=== PATIENT | male | born 1945 | race Caucasian/White ===

== ENCOUNTER 2017-08-12 14:15 | Emergency (ER) | payer MEDICARE, BC ==
[2017-08-12 15:31] VITALS: BP 127/47
[2017-08-12] MEDS ORDERED: Sodium Chloride 0.9% 10 ML Syringe FLUSH PRN (17:00)
[2017-08-12 17:56] LABS: CHLORIDE,CL 91 mmol/L (101-111); SODIUM,NA 137 mmol/L (135-145)
--- NOTE | 2017-08-15 20:34 | EKG ---
08/12/2017 - JAGRUTI ROJAS I reviewed the EKG and agree with the machine's reading. [facility] /[id number]
--- NOTE | 2017-08-30 06:57 | EDM.PDOC ---
Scribed by Summer Iraheta 08/12/17 2019 for Elayne Kirk PA-C ED HPI GENERAL MEDICAL PROBLEM - General Chief Complaint: General Stated Complaint: [id number] DIZZY BLOOD PRESSURE LOW PULSE LOW Time Seen by Provider: 08/12/17 16:55 Source of Information: Reports: Patient, RN, RN Notes Reviewed History Limitations: Reports: No Limitations - History of Present Illness INITIAL COMMENTS - FREE TEXT/NARRATIVE: Patient presents with low blood pressure and heart rate at home. He is on home 02. He has dizziness worse today. Does have a history of dizziness. Blood sugar was 358 today. He has a sinus headache today. He has had no fever,chills, nausea , vomiting diarrhea or chest pain. He does have SOB that is not new. Location: Reports: Head, Chest Quality: Reports: Ache Severity: Moderate Improves with: Reports: None Worsens with: Reports: None Associated Symptoms: Reports: No Other Symptoms - Related Data Allergies Allergy/AdvReac Type Severity Reaction Status Date / Time morphine Allergy Cannot Verified 08/12/17 15:24 Remember Home Meds: Home Meds Allopurinol [Zyloprim] 300 mg PO DAILY 06/21/14 [History] Aspirin [Carlos Chewable Aspirin] 81 mg PO DAILY 06/21/14 [History] Budesonide/Formoterol [Symbicort 160-4.5 MCG] 2 meter INH BID 06/21/14 [History] Docusate Sodium 100 mg PO BID 06/21/14 [History] Nitroglycerin [Nitrostat] 0.4 mg SL ASDIRECTED PRN 06/21/14 [History] Potassium Chloride [Potassium Chloride] 20 meq PO QID 06/21/14 [History] glipiZIDE [Glucotrol] 2.5 mg PO DAILY 06/21/14 [History] Simethicone [Gas-X] 2 tab PO ASDIRECTED PRN 09/08/14 [History] Albuterol [Proventil HFA] 2 inh INH Q4HR PRN 03/26/15 [History] Bumetanide [Bumex] 2 mg PO BID 03/26/15 [History] Digoxin [Digoxin] 0.125 mg PO DAILY 03/26/15 [History] Lisinopril [Lisinopril] 10 mg PO DAILY PRN 03/26/15 [History] Simvastatin [Simvastatin] 20 mg PO QPM 03/26/15 [History] Amiodarone [Cordarone] 200 mg PO DAILY 10/12/15 [History] Metoprolol Tartrate 25 mg PO 08/12/17 [History] Past Medical History HEENT History: Reports: Hard of Hearing Cardiovascular History: Reports: Afib, Arrhythmia, CAD, High Cholesterol, Hypertension, Stents Respiratory History: Reports: COPD, SOB Gastrointestinal History: Reports: Colon Polyp, Diverticulosis, GERD, Hemorrhoids, PUD Genitourinary History: Reports: Renal Calculus Musculoskeletal History: Reports: Gout Other Musculoskeletal History: wrist surgery Endocrine/Metabolic History: Reports: Diabetes, Type II, Obesity/BMI 30+ - Past Surgical History Cardiovascular Surgical History: Reports: Coronary Artery Stent Neurological Surgical History: Reports: Lumbar Spine Musculoskeletal Surgical History: Reports: Other (See Below) Other Musculoskeletal Surgeries/Procedures:: broken right wrist now has a plate in it Social & Family History - Family History Family Medical History: Noncontributory - Tobacco Use Smoking Status *Q: Former Smoker Years of Tobacco use: 15 Used Tobacco, but Quit: Yes Month Tobacco Last Used: ? Second Hand Smoke Exposure: No - Caffeine Use Caffeine Use: Reports: None - Alcohol Use Days Per Week of Alcohol Use: 0 - Recreational Drug Use Recreational Drug Use: No Drug Use in Last 12 Months: No - Living Situation & Occupation Living situation: Reports: , with Spouse Occupation: Retired ED ROS GENERAL - Review of Systems Review Of Systems: ROS reveals no pertinent complaints other than HPI. ED EXAM, GENERAL - Physical Exam Exam: See Below Exam Limited By: No Limitations General Appearance: Other (in distress.) Eye Exam: Bilateral Eye: Normal Inspection Ears: Normal External Exam, Normal Canal, Hearing Grossly Normal, Normal TMs Nose: Normal Inspection, Normal Mucosa, No Blood Throat/Mouth: Normal Inspection Head: Atraumatic, Normocephalic Neck: Normal Inspection Respiratory/Chest: Crackles (RLL fine), Other (diminished lung sounds. LLL barely audible breath sounds.) Cardiovascular: Bradycardia, Other (S1 S2 regular. +1 left extremity pitting edema.) GI/Abdominal: Normal Bowel Sounds, Soft, Non-Tender, No Organomegaly, No Distention, No Abnormal Bruit, No Mass (Male) Exam: Deferred Rectal (Males) Exam: Deferred Back Exam: Normal Inspection, Full Range of Motion, NT Extremities: Normal Inspection, Normal Range of Motion, Non-Tender, Normal Capillary Refill, No Pedal Edema Neurological: Alert, Oriented, CN II-XII Intact, Normal Cognition, Normal Gait, Normal Reflexes, No Motor/Sensory Deficits Psychiatric: Normal Affect, Normal Mood Skin Exam: Warm, Dry, Intact, Normal Color, No Rash Lymphatic: No Adenopathy EKG INTERPRETATION EKG Date: 08/12/17 Time: 17:02 Rhythm: Other (junctional escape rhythm) Rate (Beats/Min): 46 [place]: Normal P-Wave: Present QRS: LBBB ST-T: Normal QT: Normal Comparison: No Change Course - Vital Signs Last Recorded V/S: Last Vital Signs Temp 98 F 08/12/17 15:29 Pulse 60 08/12/17 15:29 Resp 20 08/12/17 15:29 BP 127/47 L 08/12/17 15:29 Pulse Ox 91 L 08/12/17 15:29 - Orders/Labs/Meds Labs: Laboratory Tests 08/12/17 08/12/17 08/12/17 Range/Units 17:20 17:20 17:20 WBC 7.0 (5.0-10.0) 10^3/uL RBC 4.07 L (4.6-6.2) 10^6/uL Hgb 13.5 L D (14.0-18.0) g/dL Hct 42.2 (40.0-54.0) % MCV 103.7 H D (80-100) fL MCH 33.2 (27.0-34.0) pg MCHC 32.0 L (33.0-35.0) g/dL Plt Count 123 L (150-450) 10^3/uL Neut % (Auto) 54.4 (42.2-75.2) % Lymph % (Auto) 31.4 (20.5-50.1) % [place] % (Auto) 11.9 H (2-8) % Eos % (Auto) 1.9 (1.0-3.0) % Baso % (Auto) 0.4 (0.0-1.0) % PT (9.0-12.0) SEC INR (0.9-1.2) D-Dimer, Quantitative < 100 (0-400) ng/mL Sodium 137 (135-145) mmol/L Potassium 3.7 (3.6-5.0) mmol/L Chloride 91 L (101-111) mmol/L Carbon Dioxide 38.0 H (21.0-31.0) mmol/L Anion Gap 11.7 BUN 19 H (7-18) mg/dL Creatinine 1.1 (0.6-1.3) mg/dL Est Cr Clr Drug Dosing 58.42 mL/min Estimated GFR (MDRD) > 60 BUN/Creatinine Ratio 17.27 Glucose 236 H (74-105) mg/dL Calcium 8.9 (8.4-10.2) mg/dl Total Bilirubin 0.7 (0.2-1.0) mg/dL AST 28 (10-42) IU/L ALT 37 (10-60) IU/L Alkaline Phosphatase 72 (42-121) IU/L Troponin I 0.03 H* (0.00-0.02) ng/ml B-Natriuretic Peptide (0-100) pg/ml Total Protein 6.3 L (6.7-8.2) g/dl Albumin 3.8 (3.2-5.5) g/dl Globulin 2.5 Albumin/Globulin Ratio 1.52 Urine Color (YELLOW) Urine Appearance (CLEAR) Urine pH (5.0-9.0) Ur Specific [place] (1.005-1.030) Urine Protein (NEGATIVE) Urine Glucose (UA) (NEGATIVE) Urine Ketones (NEGATIVE) Urine Occult Blood (NEGATIVE) Urine Nitrite (NEGATIVE) Urine Bilirubin (NEGATIVE) Urine Urobilinogen (0.2-1.0) mg/dL Ur Leukocyte Esterase (NEGATIVE) Urine RBC /HPF Urine WBC (0-5/HPF) /HPF Urine Bacteria (0-FEW/HPF) /HPF Urine Mucus /LPF Digoxin (0-2.5) ng/ml 08/12/17 08/12/17 08/12/17 Range/Units 17:20 17:20 17:20 WBC (5.0-10.0) 10^3/uL RBC (4.6-6.2) 10^6/uL Hgb (14.0-18.0) g/dL Hct (40.0-54.0) % MCV (80-100) fL MCH (27.0-34.0) pg MCHC (33.0-35.0) g/dL Plt Count (150-450) 10^3/uL Neut % (Auto) (42.2-75.2) % Lymph % (Auto) (20.5-50.1) % [place] % (Auto) (2-8) % Eos % (Auto) (1.0-3.0) % Baso % (Auto) (0.0-1.0) % PT 10.4 D (9.0-12.0) SEC INR 1.0 (0.9-1.2) D-Dimer, Quantitative (0-400) ng/mL Sodium (135-145) mmol/L Potassium (3.6-5.0) mmol/L Chloride (101-111) mmol/L Carbon Dioxide (21.0-31.0) mmol/L Anion Gap BUN (7-18) mg/dL Creatinine (0.6-1.3) mg/dL Est Cr Clr Drug Dosing mL/min Estimated GFR (MDRD) BUN/Creatinine Ratio Glucose (74-105) mg/dL Calcium (8.4-10.2) mg/dl Total Bilirubin (0.2-1.0) mg/dL AST (10-42) IU/L ALT (10-60) IU/L Alkaline Phosphatase (42-121) IU/L Troponin I (0.00-0.02) ng/ml B-Natriuretic Peptide 144 H (0-100) pg/ml Total Protein (6.7-8.2) g/dl Albumin (3.2-5.5) g/dl Globulin Albumin/Globulin Ratio Urine Color (YELLOW) Urine Appearance (CLEAR) Urine pH (5.0-9.0) Ur Specific [place] (1.005-1.030) Urine Protein (NEGATIVE) Urine Glucose (UA) (NEGATIVE) Urine Ketones (NEGATIVE) Urine Occult Blood (NEGATIVE) Urine Nitrite (NEGATIVE) Urine Bilirubin (NEGATIVE) Urine Urobilinogen (0.2-1.0) mg/dL Ur Leukocyte Esterase (NEGATIVE) Urine RBC /HPF Urine WBC (0-5/HPF) /HPF Urine Bacteria (0-FEW/HPF) /HPF Urine Mucus /LPF Digoxin 0.8 (0-2.5) ng/ml 08/12/ Range/Units 17:57 WBC (5.0-10.0) 10^3/uL RBC (4.6-6.2) 10^6/uL Hgb (14.0-18.0) g/dL Hct (40.0-54.0) % MCV (80-100) fL MCH (27.0-34.0) pg MCHC (33.0-35.0) g/dL Plt Count (150-450) 10^3/uL Neut % (Auto) (42.2-75.2) % Lymph % (Auto) (20.5-50.1) % [place] % (Auto) (2-8) % Eos % (Auto) (1.0-3.0) % Baso % (Auto) (0.0-1.0) % PT (9.0-12.0) SEC INR (0.9-1.2) D-Dimer, Quantitative (0-400) ng/mL Sodium (135-145) mmol/L Potassium (3.6-5.0) mmol/L Chloride (101-111) mmol/L Carbon Dioxide (21.0-31.0) mmol/L Anion Gap BUN (7-18) mg/dL Creatinine (0.6-1.3) mg/dL Est Cr Clr Drug Dosing mL/min Estimated GFR (MDRD) BUN/Creatinine Ratio Glucose (74-105) mg/dL Calcium (8.4-10.2) mg/dl Total Bilirubin (0.2-1.0) mg/dL AST (10-42) IU/L ALT (10-60) IU/L Alkaline Phosphatase (42-121) IU/L Troponin I (0.00-0.02) ng/ml B-Natriuretic Peptide (0-100) pg/ml Total Protein (6.7-8.2) g/dl Albumin (3.2-5.5) g/dl Globulin Albumin/Globulin Ratio Urine Color Yellow (YELLOW) Urine Appearance Clear (CLEAR) Urine pH 6.0 (5.0-9.0) Ur Specific [place] 1.015 (1.005-1.030) Urine Protein Negative (NEGATIVE) Urine Glucose (UA) 250 H (NEGATIVE) Urine Ketones Negative (NEGATIVE) Urine Occult Blood Negative (NEGATIVE) Urine Nitrite Negative (NEGATIVE) Urine Bilirubin Negative (NEGATIVE) Urine Urobilinogen 0.2 (0.2-1.0) mg/dL Ur Leukocyte Esterase Negative (NEGATIVE) Urine RBC Not seen /HPF Urine WBC Not seen (0-5/HPF) /HPF Urine Bacteria Not seen (0-FEW/HPF) /HPF Urine Mucus Rare /LPF Digoxin (0-2.5) ng/ml Meds: Medications Discontinued Medications Generic Name Dose Route Start Last Admin Trade Name Freq PRN Reason Stop Dose Admin Sodium Chloride 10 ml 08/12/17 17:00 08/12/17 17:49 Saline Flush FLUSH 10 ml ASDIRECTED PRN Administration Keep Vein Open - Radiology Interpretation Free Text/Narrative:: Chest x-ray: Mild right basilar atelectasis. See rad report. Departure - Departure Time of Disposition: 20:17 Disposition: DC/Tfer to Acute Hospital 02 Condition: Undetermined Clinical Impression: Bradycardia by electrocardiogram, COLD, Chronic obstructive lung disease, Junctional bradycardia, Hyperglycemia - Discharge Information Referrals: PCP,None [Primary Care Provider] - Forms: ED Department Discharge I have read and agree with the documentation that has been completed regarding this visit. By signing this record, I attest that the documentation was completed in my physical presence and is an accurate record of the encounter.
== END 2017-08-12 21:04 ==
LOC: DL.ED 14:15
DX: E11.65 Type 2 diabetes mellitus with hyperglycemia (principal); J44.9 Chronic obstructive pulmonary disease, unspecified; R00.1 Bradycardia, unspecified; I10 Essential (primary) hypertension; E78.00 Pure hypercholesterolemia, unspecified; I48.91 Unspecified atrial fibrillation; I25.10 Atherosclerotic heart disease of native coronary artery without angina pectoris; Z95.5 Presence of coronary angioplasty implant and graft; Z87.891 Personal history of nicotine dependence; Z79.84 Long term (current) use of oral hypoglycemic drugs; Z79.82 Long term (current) use of aspirin; Z88.5 Allergy status to narcotic agent
CPT/HCPCS: 36415; 70450; 71010; 80053; 80162; 81001; 83880; 84484; 85025; 85379; 85610; 93005; 93010; 99285; J7050; 99283

== ENCOUNTER 2019-10-20 10:04 | Emergency (ER) | payer MEDICARE, BC ==
[2019-10-20 10:38] VITALS: BP 122/44; PULSE 76
--- NOTE | 2019-10-20 12:19 | EDM.PDOC ---
Scribed by Summer Iraheta 10/20/19 1219 for Edita Stein NP ED HPI GENERAL MEDICAL PROBLEM - General Chief Complaint: Upper Extremity Injury/Pain Stated Complaint: FALL/ARM/HIP PAIN Time Seen by Provider: 10/20/19 10:22 Source of Information: Reports: Patient, Family, RN, RN Notes Reviewed History Limitations: Reports: No Limitations - History of Present Illness INITIAL COMMENTS - FREE TEXT/NARRATIVE: Patient presents to ER with complaint of fall this morning about 08:00. 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 States he bumped head. He was not knocked out. He has a slight headache. He complains of pain to right arm (plate in right wrist). States fell on right hip but denies pain at this time time. Denies dizziness or episode leading up to event. HE is on 2 liters nasal cannula at all times. Onset: Today Duration: Constant Location: Reports: Generalized Quality: Reports: Ache Severity: Moderate Improves with: Reports: None Worsens with: Reports: None Associated Symptoms: Reports: No Other Symptoms - Related Data Allergies Allergy/AdvReac Type Severity Reaction Status Date / Time morphine Allergy Cannot Verified 10/20/19 10:38 Remember Home Meds: Home Meds Aspirin [Carlos Chewable Aspirin] 81 mg PO DAILY 06/21/14 [History] Budesonide/Formoterol [Symbicort 160-4.5 MCG] 2 meter INH BID 06/21/14 [History] Docusate Sodium 100 mg PO BID 06/21/14 [History] Nitroglycerin [Nitrostat] 0.4 mg SL ASDIRECTED PRN 06/21/14 [History] Potassium Chloride 20 meq PO QID 06/21/14 [History] allopurinoL [Zyloprim] 300 mg PO DAILY 06/21/14 [History] glipiZIDE [Glucotrol] 2.5 mg PO DAILY 06/21/14 [History] Simethicone [Gas-X] 2 tab PO ASDIRECTED PRN 09/08/14 [History] Albuterol [Proventil HFA] 2 inh INH Q4HR PRN 03/26/15 [History] Bumetanide [Bumex] 2 mg PO BID 03/26/15 [History] Digoxin 0.125 mg PO DAILY 03/26/15 [History] Lisinopril 10 mg PO DAILY PRN 03/26/15 [History] Simvastatin 20 mg PO QPM 03/26/15 [History] Amiodarone [Cordarone] 200 mg PO DAILY 10/12/15 [History] Metoprolol Tartrate 25 mg PO 08/12/17 [History] Past Medical History HEENT History: Reports: Hard of Hearing Cardiovascular History: Reports: Afib, Arrhythmia, CAD, Heart Failure, High Cholesterol, Hypertension, Pacemaker, Stents Respiratory History: Reports: COPD, SOB Gastrointestinal History: Reports: Colon Polyp, Diverticulosis, GERD, Hemorrhoids, PUD Genitourinary History: Reports: Renal Calculus Musculoskeletal History: Reports: Gout Other Musculoskeletal History: wrist surgery Endocrine/Metabolic History: Reports: Diabetes, Type II, Obesity/BMI 30+ - Past Surgical History Cardiovascular Surgical History: Reports: Coronary Artery Stent Neurological Surgical History: Reports: Lumbar Spine Musculoskeletal Surgical History: Reports: Other (See Below) Other Musculoskeletal Surgeries/Procedures:: broken right wrist now has a plate in it Social & Family History - Family History Family Medical History: Noncontributory - Caffeine Use Caffeine Use: Reports: None - Living Situation & Occupation Living situation: Reports: , with Spouse Occupation: Retired Review of Systems - Review of Systems Review Of Systems: Comprehensive ROS is negative, except as noted in HPI. ED EXAM, GENERAL - Physical Exam Exam: See Below Exam Limited By: No Limitations General Appearance: Alert, WD/WN, No Apparent Distress Eye Exam: Bilateral Eye: EOMI, Normal Inspection, PERRL Ears: Normal External Exam, Normal Canal, Hearing Grossly Normal, Normal TMs Nose: Normal Inspection, Normal Mucosa, No Blood Throat/Mouth: Normal Inspection, Normal Lips, Normal Teeth, Normal Gums, Normal Oropharynx, Normal Voice, No Airway Compromise Head: Atraumatic, Normocephalic Neck: Normal Inspection, Supple, Non-Tender, Full Range of Motion Respiratory/Chest: Crackles (throughout. Diminished) Cardiovascular: Normal Peripheral Pulses, Regular Rate, Rhythm, No Edema, No Gallop, No JVD, No Murmur, No Rub GI/Abdominal: Normal Bowel Sounds, Soft, Non-Tender, No Organomegaly, No Distention, No Abnormal Bruit, No Mass (Male) Exam: Deferred Rectal (Males) Exam: Deferred Back Exam: Normal Inspection, Full Range of Motion, NT Extremities: Normal Inspection, Normal Range of Motion, Non-Tender, Normal Capillary Refill, No Pedal Edema Neurological: Alert, Oriented, CN II-XII Intact, Normal Cognition, Normal Gait, Normal Reflexes, No Motor/Sensory Deficits Psychiatric: Normal Affect, Normal Mood Skin Exam: Dry Lymphatic: No Adenopathy Course - Vital Signs Last Recorded V/S: Last Vital Signs Temp 97.6 F 10/20/19 10:20 Pulse 76 10/20/19 10:20 Resp 16 10/20/19 10:20 BP 122/44 L 10/20/19 10:20 Pulse Ox 95 10/20/19 10:20 - Orders/Labs/Meds Orders: Active Orders 24 hr Category Date Time Status Forearm 2V Rt [CR] Urgent Exams 10/20/19 10:36 Taken Head wo Cont [CT] Urgent Exams 10/20/19 10:36 Taken - Radiology Interpretation Free Text/Narrative:: CT Head wo contrast: FINDINGS: Brain: No hemorrhage, edema, or mass effect. Nonspecific decreased attenuation in both hemispheres compatible with chronic ischemic change. Ventricles: Normal. No ventriculomegaly. Bones/joints: Unremarkable. No acute fracture. Sinuses: No acute sinusitis. Mastoid air cells: Unremarkable. Soft tissues: Unremarkable. IMPRESSION: No acute findings. Thank you for allowing us to participate in the care of your patient. Dictated and Authenticated by: Vijay Skelton MD 10/20/2019 12:13 PM Central Time ([place] & [place]) Right forearm xray: FINDINGS: Bones/joints: No acute fracture. Radial internal fixation device. Radiocarpal degenerative/arthritic change. Soft tissues: No radiodense or metallic foreign body. Vascular calcifications. IMPRESSION: No acute findings. Thank you for allowing us to participate in the care of your patient. Dictated and Authenticated by: Vijay Skelton MD 10/20/2019 12:13 PM Central Time ([place] & [place]) See rad report Departure - Departure Time of Disposition: 12:15 Disposition: Home, Self-Care 01 Condition: Fair Clinical Impression: Fall at home Qualifiers: Encounter type: initial encounter Qualified Code(s): W19.XXXA - Unspecified fall, initial encounter; Y92.009 - Unspecified place in unspecified non- institutional (private) residence as the place of occurrence of the external cause COPD (chronic obstructive pulmonary disease) Qualifiers: COPD type: chronic bronchitis Chronic bronchitis type: unspecified Qualified Code(s): J42 - Unspecified chronic bronchitis CHF (congestive heart failure) Qualifiers: Heart failure type: unspecified Heart failure chronicity: unspecified Qualified Code(s): I50.9 - Heart failure, unspecified Diabetes Qualifiers: Diabetes mellitus type: type 2 Diabetes mellitus termination clerk insulin use: with termination clerk use Diabetes mellitus complication status: without complication Qualified Code(s): E11.9 - Type 2 diabetes mellitus without complications; Z79.4 - manager intermediate (current) use of insulin - Discharge Information *PRESCRIPTION DRUG MONITORING PROGRAM REVIEWED*: No *COPY OF PRESCRIPTION DRUG MONITORING REPORT IN PATIENT ADELE: No Instructions: Understanding Your Risk for Falls Forms: ED Department Discharge Additional Instructions: Rest Follow up with your primary care facility if no improvement May use Tylenol as directed for pain Sepsis Event Note - Focused Exam Vital Signs: Vital Signs Temp Pulse Resp BP Pulse Ox 10/20/19 10:20 97.6 F 76 16 122/44 L 95 Date Exam was Performed: 10/20/19 Time Exam was Performed: 12:14 - My Orders Last 24 Hours: My Active Orders 10/20/19 10:36 Forearm 2V Rt [CR] Urgent Head wo Cont [CT] Urgent - Assessment/Plan Last 24 Hours: My Active Orders 10/20/19 10:36 Forearm 2V Rt [CR] Urgent Head wo Cont [CT] Urgent I have read and agree with the documentation that has been completed regarding this visit. By signing this record, I attest that the documentation was completed in my physical presence and is an accurate record of the encounter.
== END 2019-10-20 12:38 | disposition home or self-care (01) ==
LOC: DL.ED 10:04
DX: R51 Headache (principal); M79.601 Pain in right arm; J42 Unspecified chronic bronchitis; E11.9 Type 2 diabetes mellitus without complications; I11.0 Hypertensive heart disease with heart failure; I50.9 Heart failure, unspecified; I48.91 Unspecified atrial fibrillation; I25.10 Atherosclerotic heart disease of native coronary artery without angina pectoris; E78.00 Pure hypercholesterolemia, unspecified; M10.9 Gout, unspecified; E66.9 Obesity, unspecified; Z68.41 Body mass index [BMI] 40.0-44.9, adult; Z88.5 Allergy status to narcotic agent; Z95.0 Presence of cardiac pacemaker; Z95.5 Presence of coronary angioplasty implant and graft; Z79.82 Long term (current) use of aspirin; Z79.51 Long term (current) use of inhaled steroids; Z79.899 Other long term (current) drug therapy; Z79.84 Long term (current) use of oral hypoglycemic drugs; W19.XXXA Unspecified fall, initial encounter; Y93.89 Activity, other specified; Y92.009 Unspecified place in unspecified non-institutional (private) residence as the place of occurrence of the external cause
CPT/HCPCS: 70450; 73090-RT; 99284-25

== ENCOUNTER 2021-06-01 18:11 | Emergency (ER) | payer MEDICARE, BC ==
[2021-06-01] MEDS ORDERED: Albuterol 0.083% 2.5 MG/3 ML Neb Soln NEB ONE ×3 (18:15→21:09)
[2021-06-01] MEDS ORDERED: Sodium Chloride 0.9% 10 ML Syringe FLUSH PRN (18:17)
[2021-06-01] MEDS ORDERED: methylPREDNISolone Sodium Succinate 125 MG/2 ML SDV IVPUSH ONE (18:18)
[2021-06-01] MEDS ORDERED: Magnesium Sulfate/Water 2 GM in Premix Bag 2 BAG IV ONE (18:19)
--- NOTE | 2021-06-01 18:52 | EDM.PDOC ---
<Ayo Barros - Last Filed: 06/06/21 07:54> ED HPI GENERAL MEDICAL PROBLEM - General Chief Complaint: Respiratory Problem Stated Complaint: AMBULANCE Time Seen by Provider: 06/01/21 18:15 - Related Data Allergies Allergy/AdvReac Type Severity Reaction Status Date / Time morphine Allergy Cannot Verified 06/01/21 18:21 Remember Home Meds: Home Meds Aspirin [Carlos Chewable Aspirin] 81 mg PO DAILY 06/21/14 [History] Budesonide/Formoterol [Symbicort 160-4.5 MCG] 2 meter INH BID 06/21/14 [History] Docusate Sodium 100 mg PO BID 06/21/14 [History] Nitroglycerin [Nitrostat] 0.4 mg SL ASDIRECTED PRN 06/21/14 [History] Potassium Chloride 20 meq PO QID 06/21/14 [History] allopurinoL [Zyloprim] 300 mg PO DAILY 06/21/14 [History] glipiZIDE [Glucotrol] 2.5 mg PO DAILY 06/21/14 [History] Simethicone [Gas-X] 2 tab PO ASDIRECTED PRN 09/08/14 [History] Albuterol [Proventil HFA] 2 inh INH Q4HR PRN 03/26/15 [History] Bumetanide [Bumex] 2 mg PO BID 03/26/15 [History] Digoxin 0.125 mg PO DAILY 03/26/15 [History] Lisinopril 10 mg PO DAILY PRN 03/26/15 [History] Simvastatin 20 mg PO QPM 03/26/15 [History] Amiodarone [Cordarone] 200 mg PO DAILY 10/12/15 [History] Metoprolol Tartrate 25 mg PO 08/12/17 [History] Departure - Departure Time of Disposition: 20:45 Disposition: DC/Tfer to Acute Hospital 02 Condition: Serious Clinical Impression: Acute exacerbation of chronic obstructive pulmonary disease (COPD), Hyperka lemia Acute on chronic respiratory failure Qualifiers: Respiratory failure complication: unspecified whether with hypoxia or hypercapnia Qualified Code(s): J96.20 - Acute and chronic respiratory failure, unspecified whether with hypoxia or hypercapnia - Discharge Information *PRESCRIPTION DRUG MONITORING PROGRAM REVIEWED*: Not Applicable *COPY OF PRESCRIPTION DRUG MONITORING REPORT IN PATIENT ADELE: Not Applicable Referrals: Maggie Condon NP [Primary Care Provider] - Forms: ED Department Discharge <Genaro Luna - Last Filed: 06/10/21 07:25> ED HPI GENERAL MEDICAL PROBLEM - General Source of Information: Reports: Patient History Limitations: Reports: No Limitations - History of Present Illness INITIAL COMMENTS - FREE TEXT/NARRATIVE: 75 y/o M c/o SOB since yesterday. Pt states he has used his inhaler with no relief. Hx of COPD and CHF. SOB becae so severe that pt had to call the ambulance this afternoon. Denies fever, cough, chills, drugs, etoh, CP, abd pn, diff voiding, extremity pn. No recent trauma or exposure to COVID. Duration: Day(s): Location: Reports: Chest Improves with: Reports: None Worsens with: Reports: Movement Left Chest Pain Score (Numeric/FACES): 5 Past Medical History HEENT History: Reports: Hard of Hearing Cardiovascular History: Reports: Afib, Arrhythmia, CAD, Heart Failure, High Cholesterol, Hypertension, Pacemaker, Stents Respiratory History: Reports: COPD, SOB Gastrointestinal History: Reports: Colon Polyp, Diverticulosis, GERD, Hemorrhoids, PUD Genitourinary History: Reports: Renal Calculus Musculoskeletal History: Reports: Gout Other Musculoskeletal History: wrist surgery Psychiatric History: Reports: None Endocrine/Metabolic History: Reports: Diabetes, Type II, Obesity/BMI 30+ Hematologic History: Reports: None Immunologic History: Reports: None Oncologic (Cancer) History: Reports: None Dermatologic History: Reports: None - Infectious Disease History Infectious Disease History: Reports: None - Past Surgical History Head Surgeries/Procedures: Reports: None HEENT Surgical History: Reports: Tonsillectomy Cardiovascular Surgical History: Reports: Coronary Artery Stent GI Surgical History: Reports: Colonoscopy, EGD Neurological Surgical History: Reports: Lumbar Spine Musculoskeletal Surgical History: Reports: Other (See Below) Other Musculoskeletal Surgeries/Procedures:: broken right wrist now has a plate in it Social & Family History - Family History Family Medical History: No Pertinent Family History - Tobacco Use Tobacco Use Status *Q: Unknown Ever Used Tobacco - Caffeine Use Caffeine Use: Reports: None - Recreational Drug Use Recreational Drug Use: No - Living Situation & Occupation Living situation: Reports: , with Spouse Occupation: Retired ED ROS GENERAL - Review of Systems Review Of Systems: Comprehensive ROS is negative, except as noted in HPI. ED EXAM, GENERAL - Physical Exam Exam: See Below Exam Limited By: No Limitations General Appearance: Alert, Moderate Distress Throat/Mouth: Normal Inspection, Normal Lips, Normal Teeth, Normal Gums, Normal Oropharynx, Normal Voice, No Airway Compromise Head: Atraumatic, Normocephalic Neck: Supple, Non-Tender Respiratory/Chest: Respiratory Distress, Wheezing Cardiovascular: Normal Peripheral Pulses GI/Abdominal: Soft, Non-Tender (Male) Exam: Deferred Rectal (Males) Exam: Deferred Neurological: Alert, Oriented Psychiatric: Normal Affect, Normal Mood Skin Exam: Warm, Dry, Intact, Normal Color, No Rash #1 Interpretation EKG Date: 06/01/21 Time: 18:29 Rhythm: Other (paced rhythm) [place]: LAD-Left [place] Deviation P-Wave: Present QRS: Normal ST-T: Normal QT: Normal Course - Vital Signs Last Recorded V/S: Last Vital Signs Temp 100.6 F 06/01/21 18:22 Pulse 70 06/01/21 20:30 Resp 18 06/01/21 20:30 BP 120/99 H 06/01/21 20:30 Pulse Ox 93 L 06/01/21 20:30 - Orders/Labs/Meds Labs: Laboratory Tests 06/01/21 06/01/21 06/01/21 Range/Units 18:36 18:36 18:36 WBC 11.0 H (5.0-10.0) 10^3/uL RBC 3.16 L (4.6-6.2) 10^6/uL Hgb 10.7 L D (14.0-18.0) g/dL Hct 35.0 L (40.0-54.0) % MCV 110.8 H D (80-100) fL MCH 33.9 (27.0-34.0) pg MCHC 30.6 L (33.0-35.0) g/dL Plt Count 116 L (150-450) 10^3/uL Neut % (Auto) 81.3 H (42.2-75.2) % Lymph % (Auto) 8.2 L (20.5-50.1) % [place] % (Auto) 10.0 H (2-8) % Eos % (Auto) 0.3 L (1.0-3.0) % Baso % (Auto) 0.2 (0.0-1.0) % PT 10.9 (9.0-12.0) SEC INR 1.1 (0.9-1.2) APTT 26.8 (22.0-34.0) SEC Sodium 141 (136-145) mmol/L Potassium 6.6 H* (3.5-5.1) mmol/L Chloride 103 (98-107) mmol/L Carbon Dioxide 36 H (21-32) mmol/L Anion Gap 8.6 (7-13) mEq/L BUN 21 H (7-18) mg/dL Creatinine 1.30 (0.70-1.30) mg/dL Est Cr Clr Drug Dosing 51.47 mL/min Estimated GFR (MDRD) 54 BUN/Creatinine Ratio 16.2 (No establ ref range) Glucose 218 H (70-99) mg/dL Lactic Acid (0.4-2.0) mmol/L Calcium 8.9 (8.5-10.1) mg/dL Magnesium 2.3 (1.8-2.4) mg/dL Total Bilirubin 0.8 (0.2-1.0) mg/dL AST 21 (15-37) U/L ALT 43 (16-63) U/L Alkaline Phosphatase 103 (46-116) U/L Troponin I High Sens 22 (<=76) pg/mL B-Natriuretic Peptide 168 H (0-100) pg/ml Total Protein 6.2 L (6.4-8.2) g/dL Albumin 3.2 L (3.4-5.0) g/dL Globulin 3.0 Albumin/Globulin Ratio 1.07 Urine Color (YELLOW) Urine Appearance (CLEAR) Urine pH (5.0-9.0) Ur Specific [place] (1.005-1.030) Urine Protein (NEGATIVE) Urine Glucose (UA) (NEGATIVE) Urine Ketones (NEGATIVE) Urine Occult Blood (NEGATIVE) Urine Nitrite (NEGATIVE) Urine Bilirubin (NEGATIVE) Urine Urobilinogen (0.2-1.0) mg/dL Ur Leukocyte Esterase (NEGATIVE) U Hyaline Cast (Auto) Urine RBC (0-5) /HPF Urine WBC (0-5/HPF) /HPF Ur Epithelial Cells (NOT SEEN) /HPF Amorphous Sediment (NOT SEEN) /HPF Urine Bacteria (0-FEW/HPF) /HPF Fine Granular Casts (NOT SEEN) /LPF Digoxin (0.9-2.0) ng/mL SARS-CoV-2 RNA (KULWANT) (NEGATIVE) 06/01/21 06/01/21 06/01/21 Range/Units 18:36 18:36 18:37 WBC (5.0-10.0) 10^3/uL RBC (4.6-6.2) 10^6/uL Hgb (14.0-18.0) g/dL Hct (40.0-54.0) % MCV (80-100) fL MCH (27.0-34.0) pg MCHC (33.0-35.0) g/dL Plt Count (150-450) 10^3/uL Neut % (Auto) (42.2-75.2) % Lymph % (Auto) (20.5-50.1) % Sawyer % (Auto) (2-8) % Eos % (Auto) (1.0-3.0) % Baso % (Auto) (0.0-1.0) % PT (9.0-12.0) SEC INR (0.9-1.2) APTT (22.0-34.0) SEC Sodium (136-145) mmol/L Potassium (3.5-5.1) mmol/L Chloride (98-107) mmol/L Carbon Dioxide (21-32) mmol/L Anion Gap (7-13) mEq/L BUN (7-18) mg/dL Creatinine (0.70-1.30) mg/dL Est Cr Clr Drug Dosing mL/min Estimated GFR (MDRD) BUN/Creatinine Ratio (No establ ref range) Glucose (70-99) mg/dL Lactic Acid 1.6 (0.4-2.0) mmol/L Calcium (8.5-10.1) mg/dL Magnesium (1.8-2.4) mg/dL Total Bilirubin (0.2-1.0) mg/dL AST (15-37) U/L ALT (16-63) U/L Alkaline Phosphatase (46-116) U/L Troponin I High Sens (<=76) pg/mL B-Natriuretic Peptide (0-100) pg/ml Total Protein (6.4-8.2) g/dL Albumin (3.4-5.0) g/dL Globulin Albumin/Globulin Ratio Urine Color (YELLOW) Urine Appearance (CLEAR) Urine pH (5.0-9.0) Ur Specific [place] (1.005-1.030) Urine Protein (NEGATIVE) Urine Glucose (UA) (NEGATIVE) Urine Ketones (NEGATIVE) Urine Occult Blood (NEGATIVE) Urine Nitrite (NEGATIVE) Urine Bilirubin (NEGATIVE) Urine Urobilinogen (0.2-1.0) mg/dL Ur Leukocyte Esterase (NEGATIVE) U Hyaline Cast (Auto) Urine RBC (0-5) /HPF Urine WBC (0-5/HPF) /HPF Ur Epithelial Cells (NOT SEEN) /HPF Amorphous Sediment (NOT SEEN) /HPF Urine Bacteria (0-FEW/HPF) /HPF Fine Granular Casts (NOT SEEN) /LPF Digoxin < 0.2 L (0.9-2.0) ng/mL SARS-CoV-2 RNA (KULWANT) Negative (NEGATIVE) 06/01/21 06/01/21 Range/Units 20:25 20:50 WBC (5.0-10.0) 10^3/uL RBC (4.6-6.2) 10^6/uL Hgb (14.0-18.0) g/dL Hct (40.0-54.0) % MCV (80-100) fL MCH (27.0-34.0) pg MCHC (33.0-35.0) g/dL Plt Count (150-450) 10^3/uL Neut % (Auto) (42.2-75.2) % Lymph % (Auto) (20.5-50.1) % [place] % (Auto) (2-8) % Eos % (Auto) (1.0-3.0) % Baso % (Auto) (0.0-1.0) % PT (9.0-12.0) SEC INR (0.9-1.2) APTT (22.0-34.0) SEC Sodium (136-145) mmol/L Potassium 5.6 H (3.5-5.1) mmol/L Chloride (98-107) mmol/L Carbon Dioxide (21-32) mmol/L Anion Gap (7-13) mEq/L BUN (7-18) mg/dL Creatinine (0.70-1.30) mg/dL Est Cr Clr Drug Dosing mL/min Estimated GFR (MDRD) BUN/Creatinine Ratio (No establ ref range) Glucose (70-99) mg/dL Lactic Acid (0.4-2.0) mmol/L Calcium (8.5-10.1) mg/dL Magnesium (1.8-2.4) mg/dL Total Bilirubin (0.2-1.0) mg/dL AST (15-37) U/L ALT (16-63) U/L Alkaline Phosphatase (46-116) U/L Troponin I High Sens 27 (<=76) pg/mL B-Natriuretic Peptide (0-100) pg/ml Total Protein (6.4-8.2) g/dL Albumin (3.4-5.0) g/dL Globulin Albumin/Globulin Ratio Urine Color Yellow (YELLOW) Urine Appearance Clear (CLEAR) Urine pH 5.5 (5.0-9.0) Ur Specific [place] >= 1.030 (1.005-1.030) Urine Protein 100 H (NEGATIVE) Urine Glucose (UA) Negative (NEGATIVE) Urine Ketones Negative (NEGATIVE) Urine Occult Blood Negative (NEGATIVE) Urine Nitrite Negative (NEGATIVE) Urine Bilirubin Negative (NEGATIVE) Urine Urobilinogen 0.2 (0.2-1.0) mg/dL Ur Leukocyte Esterase Negative (NEGATIVE) U Hyaline Cast (Auto) Few Urine RBC 0-5 (0-5) /HPF Urine WBC 0-5 (0-5/HPF) /HPF Ur Epithelial Cells Rare (NOT SEEN) /HPF Amorphous Sediment Few (NOT SEEN) /HPF Urine Bacteria Rare (0-FEW/HPF) /HPF Fine Granular Casts Few H (NOT SEEN) /LPF Digoxin (0.9-2.0) ng/mL SARS-CoV-2 RNA (KULWANT) (NEGATIVE) Meds: Medications Discontinued Medications Generic Name Dose Route Start Last Admin Trade Name Freq PRN Reason Stop Dose Admin Albuterol 10 mg 06/01/21 18:15 06/01/21 18:22 Albuterol 0.083% 2.5 Mg/3 Ml Neb Soln NEB 06/01/21 18:16 10 mg ONETIME ONE Administration Albuterol 2.5 mg 06/01/21 19:45 06/01/21 21:12 Albuterol 0.083% 2.5 Mg/3 Ml Neb Soln NEB 06/01/21 19:46 2.5 mg ONETIME ONE Administration Albuterol 2.5 mg 06/01/21 21:09 Albuterol 0.083% 2.5 Mg/3 Ml Neb Soln NEB 06/01/21 21:10 ONETIME ONE Bumetanide 2 mg 06/01/21 19:38 06/01/21 19:59 Bumetanide 1 Mg/4 Ml Mdv IVPUSH 06/01/21 19:39 2 mg ONETIME ONE Administration Magnesium Sulfate 2 gm/ Premix 0 mls @ 100 mls/hr 06/01/21 18:19 06/01/21 19:19 IV 06/01/21 18:20 100 mls/hr ONETIME ONE Administration Methylprednisolone Sodium Succinate 125 mg 06/01/21 18:18 06/01/21 19:19 Methylprednisolone Sodium Succinate 125 Mg/2 Ml Sdv IVPUSH 06/01/21 18:19 125 mg ONETIME ONE Administration Sodium Chloride 10 ml 06/01/21 18:17 06/01/21 19:20 Sodium Chloride 0.9% 10 Ml Syringe FLUSH 10 ml ASDIRECTED PRN Administration Keep Vein Open - Re-Assessments/Exams Free Text/Narrative Re-Assessment/Exam: 06/01/21 18:54 Care of pt transferred to Ashwini Kirk PA-C at shift change.
--- NOTE | 2021-06-01 19:08 | CR ---
PROCEDURE INFORMATION: Exam: XR Chest Exam date and time: 06/01/2021 6:51 PM Age: 75 years old Clinical indication: Other: Dyspnea, hypoxia, HX copd chf TECHNIQUE: Imaging protocol: XR of the chest. Views: 1 view. COMPARISON: CT Chest w Cont 02/20/2020 1:20 PM FINDINGS: Tubes, catheters and devices: A pacemaker device is present, and its leads are in appropriate position. Airway: Patent Lungs: Bilateral perihilar haziness and streaky-like opacities. Mild segmental bronchial wall thickening. Bilateral hilar ground-glass airspace opacifications. Bilateral basal ground-glass airspace opacities. Pleural spaces: There is blunting of the right costophrenic angle. There is blunting of the left costophrenic angle. There is no evidence of pneumothorax. Heart/Mediastinum: The heart is markedly enlarged. Vasculature: Calcified aortic knob. Bones/joints: Severe right glenohumeral joint osteoarthritis, as manifested by almost complete loss of the joint space, large osteophyte formation, subchondral cyst formation, and subchondral sclerosis. IMPRESSION: Moderately decompensated congestive heart failure, as manifested by moderate pulmonary edema and small bilateral pleural effusions. Superimposed infectious pneumonic process should be entertained in the appropriate clinical setting.
[2021-06-01 19:20] LABS: ANION GAP 8.6 mEq/L (7-13)
[2021-06-01] MEDS ORDERED: Bumetanide 1 MG/4 ML MDV IVPUSH ONE (19:38)
[2021-06-01 19:39] LABS: PTT,PARTIAL THROMBOPLSTIN TIME 26.8 SEC (22.0-34.0)
[2021-06-01 20:43] VITALS: BP 120/99; PULSE 70
== END 2021-06-01 22:24 ==
LOC: DL.ED 18:11
DX: J44.1 Chronic obstructive pulmonary disease with (acute) exacerbation (principal); E87.5 Hyperkalemia; J96.20 Acute and chronic respiratory failure, unspecified whether with hypoxia or hypercapnia; I48.91 Unspecified atrial fibrillation; I25.10 Atherosclerotic heart disease of native coronary artery without angina pectoris; I11.0 Hypertensive heart disease with heart failure; I50.9 Heart failure, unspecified; E78.00 Pure hypercholesterolemia, unspecified; E66.9 Obesity, unspecified; Z68.38 Body mass index [BMI] 38.0-38.9, adult; Z88.5 Allergy status to narcotic agent; Z79.82 Long term (current) use of aspirin; Z79.899 Other long term (current) drug therapy; Z95.1 Presence of aortocoronary bypass graft; Z20.822 Contact with and (suspected) exposure to COVID-19
CPT/HCPCS: 36415; 71045; 80053; 80162; 81001; 82272; 83605; 83735; 83880; 84132; 84484; 85025; 85610; 85730; 87040; 87804; 93005; 96365; 96375; 99285; J2930; J3475; J3490; U0002; J7613-GY

== ENCOUNTER 2021-08-28 11:07 | Emergency (ER) | payer MEDICARE, BC ==
[2021-08-28] MEDS ORDERED: Oxymetazoline 0.05% Nasal Spray 30 ML Bottle NAS ONE (11:16)
[2021-08-28] MEDS ORDERED: Lidocaine 1% with EPINEPHrine 1:100,000 20 ML MDV INJECT ONE (11:16)
[2021-08-28 11:22] VITALS: BP 115/55; PULSE 75
--- NOTE | 2021-08-28 11:25 | EDM.PDOC ---
ED HPI GENERAL MEDICAL PROBLEM - General Chief Complaint: ENT Problem Stated Complaint: 1 HR 1/2 NOSE BLEED / WON'T STOP Time Seen by Provider: 08/28/21 11:25 Source of Information: Reports: Patient, RN, RN Notes Reviewed History Limitations: Reports: No Limitations - History of Present Illness INITIAL COMMENTS - FREE TEXT/NARRATIVE: Kiko is a 75 y/o male who presents to the ED via personal vehicle with complaints of acute epistaxis. The patient reports his nose bleed started approximately 1.5 hours ago and he was unable to get it to stop; no active bleeding occurring at this time. The patient reports daily ASA use. He is on 4L O2 via [place] which he wears with a bubbler, however her uses a hypercarbia machine QID for 15 minutes which causes his nose to dry out. Additionally, he notes he inserts facial tissues into his nares to help relieve sinus congestion. Headache Pain Score (Numeric/FACES): 10 - Related Data Allergies Allergy/AdvReac Type Severity Reaction Status Date / Time morphine Allergy Cannot Verified 08/28/21 11:22 Remember Home Meds: Home Meds Budesonide/Formoterol [Symbicort 160-4.5 MCG] 2 meter INH BID 06/21/14 [History] Docusate Sodium 100 mg PO BID 06/21/14 [History] Nitroglycerin [Nitrostat] 0.4 mg SL ASDIRECTED PRN 06/21/14 [History] Potassium Chloride 10 meq PO BID 06/21/14 [History] allopurinoL [Zyloprim] 300 mg PO DAILY 06/21/14 [History] glipiZIDE [Glucotrol] 20 mg PO DAILY 06/21/14 [History] Simethicone [Gas-X] 2 tab PO ASDIRECTED PRN 09/08/14 [History] Albuterol [Proventil HFA] 2 inh INH Q4HR PRN 03/26/15 [History] Bumetanide [Bumex] 2 mg PO BID 03/26/15 [History] Digoxin 0.125 mg PO DAILY 03/26/15 [History] Lisinopril 10 mg PO DAILY PRN 03/26/15 [History] Simvastatin 20 mg PO QPM 03/26/15 [History] Amiodarone [Cordarone] 200 mg PO DAILY 10/12/15 [History] Metoprolol Tartrate 75 mg PO BID 08/12/17 [History] Acetaminophen 500 mg PO Q6H PRN 08/28/21 [History] Alogliptin Benzoate [Alogliptin] 25 mg PO DAILY 08/28/21 [History] Aspirin [Aspirin EC] 325 mg PO DAILY 08/28/21 [History] Cetirizine [ZyrTEC] 10 mg PO DAILY PRN 08/28/21 [History] Cholecalciferol (Vitamin D3) [Vitamin D3] 1,000 unit PO DAILY 08/28/21 [History] Ferrous Sulfate 325 mg PO DAILY 08/28/21 [History] Folic Acid 1 mg PO DAILY 08/28/21 [History] L Acidophil/B Lactis/B Longum [Florajen Digest 15 B Cell Cap] 1 each PO DAILY 08/28/21 [History] Magnesium Hydroxide [Milk of Magnesia] 15 ml PO DAILY PRN 08/28/21 [History] Spironolactone [Aldactone] 12.5 mg PO DAILY 08/28/21 [History] Tiotropium BR/Olodaterol HCL [Stiolto Respimat] 2 puff IH DAILY 08/28/21 [History] Vitamin B Complex 1 each PO DAILY 08/28/21 [History] atorvaSTATin [Lipitor] 20 mg PO DAILY 08/28/21 [History] Past Medical History HEENT History: Reports: Hard of Hearing Cardiovascular History: Reports: Afib, Arrhythmia, CAD, Heart Failure, High Cholesterol, Hypertension, Pacemaker, Stents Respiratory History: Reports: COPD, SOB Gastrointestinal History: Reports: Colon Polyp, Diverticulosis, GERD, Hemorrhoids, PUD Genitourinary History: Reports: Renal Calculus Musculoskeletal History: Reports: Gout Other Musculoskeletal History: wrist surgery Psychiatric History: Reports: None Endocrine/Metabolic History: Reports: Diabetes, Type II, Obesity/BMI 30+ Hematologic History: Reports: None Immunologic History: Reports: None Oncologic (Cancer) History: Reports: None Dermatologic History: Reports: None - Infectious Disease History Infectious Disease History: Reports: None - Past Surgical History Head Surgeries/Procedures: Reports: None HEENT Surgical History: Reports: Tonsillectomy Cardiovascular Surgical History: Reports: Coronary Artery Stent GI Surgical History: Reports: Colonoscopy, EGD Neurological Surgical History: Reports: Lumbar Spine Musculoskeletal Surgical History: Reports: Other (See Below) Other Musculoskeletal Surgeries/Procedures:: broken right wrist now has a plate in it Social & Family History - Family History Family Medical History: No Pertinent Family History - Caffeine Use Caffeine Use: Reports: None - Living Situation & Occupation Living situation: Reports: , with Spouse Occupation: Retired ED ROS ENT - Review of Systems Review Of Systems: Comprehensive ROS is negative, except as noted in HPI. ED EXAM, ENT - Physical Exam Exam: See Below Exam Limited By: No Limitations General Appearance: Alert, No Apparent Distress Eye Exam: Bilateral Eye: EOMI, Normal Inspection, PERRL (3mm) Ears: Normal External Exam, Normal Canal, Hearing Grossly Normal, Normal TMs Nose: Dried Blood (To left anterior nare), Injected Turbinates. No: Active Bleeding Mouth/Throat: Normal Inspection, Normal Gums, Normal Lips, Normal Oropharynx, Normal Teeth. No: Hoarse Voice, Muffled Voice, Pharyngeal Erythema, Throat Swelling, Tongue Swelling, Tonsillar Erythema, Tonsillar Exudates, Tonsillar Swelling Head: Atraumatic, Normocephalic Neck: Normal Inspection, Supple, Non-Tender, Full Range of Motion. No: Lymphadenopathy (L), Lymphadenopathy (R) Respiratory/Chest: No Respiratory Distress, Lungs Clear, Normal Breath Sounds, No Accessory Muscle Use, Chest Non-Tender. No: Crackles, Rales, Rhonchi, Wheezing, Stridor Cardiovascular: Normal Peripheral Pulses, Regular Rate, Rhythm, No Gallop, No Murmur, No Rub GI/Abdominal: Normal Bowel Sounds, Soft, Non-Tender (Male) Exam: Deferred Rectal (Males) Exam: Deferred Back: Normal Inspection, Full Range of Motion Extremities: Normal Inspection, Normal Range of Motion, Normal Capillary Refill Neurological: Alert, Oriented, CN II-XII Intact, Normal Cognition, Normal Gait, No Motor/Sensory Deficits Psychiatric: Normal Affect, Normal Mood Skin: Warm, Dry, Intact, Normal Color, No Rash. No: Cyanosis, Jaundice, Mottled, Pallor Lymphatic: No Adenopathy Course - Vital Signs Last Recorded V/S: Last Vital Signs Temp 98.6 F 08/28/21 11:19 Pulse 75 08/28/21 11:19 Resp 16 08/28/21 11:19 BP 115/55 L 08/28/21 11:19 Pulse Ox 98 08/28/21 11:19 - Orders/Labs/Meds Meds: Medications Discontinued Medications Generic Name Dose Route Start Last Admin Trade Name Yonatan PRN Reason Stop Dose Admin Lidocaine/Epinephrine 15 ml 08/28/21 11:16 08/28/21 11:56 Lidocaine 1% With Epinephrine 1:100,000 20 Ml Mdv INJECT 08/28/21 11:17 Not Given ONETIME ONE Oxymetazoline HCl 1 ml 08/28/21 11:16 08/28/21 11:56 Oxymetazoline 0.05% Nasal [place] 30 Ml Bottle ISMA 08/28/21 11:17 Not Given ONETIME ONE - Re-Assessments/Exams Free Text/Narrative Re-Assessment/Exam: 08/28/21 As acute nose bleed is stopped, no medications or procedures were performed. Education provided for supportive cares. Red flag signs and symptoms which would warrant reevaluation reviewed. Patient and verbalized understanding and agreement with the plan of care. Departure - Departure Time of Disposition: 11:53 Disposition: Home, Self-Care 01 Condition: Good Clinical Impression: Acute anterior epistaxis, History of home oxygen therapy, History of anticoagulant use - Discharge Information *PRESCRIPTION DRUG MONITORING PROGRAM REVIEWED*: Not Applicable *COPY OF PRESCRIPTION DRUG MONITORING REPORT IN PATIENT ADELE: Not Applicable Instructions: Nosebleed, Adult Forms: ED Department Discharge Additional Instructions: 1.) Continue using humidified oxygen at all times. 2.) You may use humidifiers throughout your home during the winter months. 3.) Apply petroleum jelly to the nares to keep the mucous membranes moist. 4.) Refrain from inserting foreign objects into the nare. 5.) Follow up with your primary care provider, or return to the emergency department, should bleeding restart and persist. Sepsis Event Note (ED) - Evaluation Sepsis Screening Result: No Definite Risk - Focused Exam Vital Signs: Vital Signs Temp Pulse Resp BP Pulse Ox 08/28/21 11:19 98.6 F 75 16 115/55 L 98
== END 2021-08-28 12:08 | disposition home or self-care (01) ==
LOC: DL.ED 11:07
DX: R04.0 Epistaxis (principal); M10.9 Gout, unspecified; J44.9 Chronic obstructive pulmonary disease, unspecified; I48.91 Unspecified atrial fibrillation; I25.10 Atherosclerotic heart disease of native coronary artery without angina pectoris; I11.0 Hypertensive heart disease with heart failure; I50.9 Heart failure, unspecified; K21.9 Gastro-esophageal reflux disease without esophagitis; E11.9 Type 2 diabetes mellitus without complications; E66.9 Obesity, unspecified; Z68.30 Body mass index [BMI] 30.0-30.9, adult; Z95.0 Presence of cardiac pacemaker; Z88.5 Allergy status to narcotic agent; Z79.899 Other long term (current) drug therapy; Z79.01 Long term (current) use of anticoagulants
CPT/HCPCS: 99283; A9270-GY

== ENCOUNTER 2023-01-02 07:07 | Emergency (ER) | payer MEDICARE, BC ==
[2023-01-02 08:02] LABS: ANION GAP 12.5 mEq/L (7-13)
[2023-01-02 08:06] LABS: PTT,PARTIAL THROMBOPLSTIN TIME 26.1 SEC (22.0-34.0)
[2023-01-02 09:09] VITALS: BP 114/61; PULSE 86
== END 2023-01-02 09:05 | disposition home or self-care (01) ==
LOC: DL.ED 07:07
DX: R31.0 Gross hematuria (principal); R30.0 Dysuria; I48.91 Unspecified atrial fibrillation; I25.10 Atherosclerotic heart disease of native coronary artery without angina pectoris; I11.0 Hypertensive heart disease with heart failure; I50.9 Heart failure, unspecified; E11.9 Type 2 diabetes mellitus without complications; E78.00 Pure hypercholesterolemia, unspecified; M10.9 Gout, unspecified; E66.9 Obesity, unspecified; Z68.34 Body mass index [BMI] 34.0-34.9, adult; Z88.5 Allergy status to narcotic agent; Z79.899 Other long term (current) drug therapy; Z95.0 Presence of cardiac pacemaker; Z87.891 Personal history of nicotine dependence
CPT/HCPCS: 36415; 80048; 81001; 85025; 85610; 85730; 99283; 99284

== ENCOUNTER 2023-08-11 07:20 | Emergency (ER) | payer MEDICARE, BC ==
[2023-08-11 07:38] VITALS: BP 121/62; PULSE 85
== END 2023-08-11 07:42 | disposition home or self-care (01) ==
LOC: DL.ED 07:20
DX: H11.31 Conjunctival hemorrhage, right eye (principal); I11.0 Hypertensive heart disease with heart failure; I50.9 Heart failure, unspecified; I48.91 Unspecified atrial fibrillation; E78.00 Pure hypercholesterolemia, unspecified; I25.10 Atherosclerotic heart disease of native coronary artery without angina pectoris; J44.9 Chronic obstructive pulmonary disease, unspecified; K21.9 Gastro-esophageal reflux disease without esophagitis; E11.9 Type 2 diabetes mellitus without complications; E66.9 Obesity, unspecified; Z68.30 Body mass index [BMI] 30.0-30.9, adult; Z95.5 Presence of coronary angioplasty implant and graft; Z95.0 Presence of cardiac pacemaker; Z79.82 Long term (current) use of aspirin; Z79.899 Other long term (current) drug therapy; Z79.4 Long term (current) use of insulin; Z88.5 Allergy status to narcotic agent
CPT/HCPCS: 99282; 99283

== ENCOUNTER 2025-03-20 11:37 | Emergency (ER) | payer MEDICARE, BC ==
[2025-03-20 12:11] VITALS: PULSE 87
[2025-03-20 12:36] LABS: APPEARANCE,URINE TURBID (CLEAR); BILIRUBIN,URINE NEGATIVE (NEGATIVE); COLOR,URINE RED (YELLOW); GLUCOSE,URINE 500 (NEGATIVE); KETONES,URINE NEGATIVE (NEGATIVE); LEUKOCYTE ESTERASE,URINE NEGATIVE (NEGATIVE); NITRITE,URINE NEGATIVE (NEGATIVE); OCCULT BLOOD,URINE LARGE (NEGATIVE); PROTEIN,URINE >=300 (NEGATIVE); UROBILINOGEN,URINE 0.2 mg/dL (0.2-1.0)
[2025-03-20 12:50] LABS: BACTERIA,URINE MODERATE /HPF (0-FEW/HPF); EPITHELIAL CELLS,URINE NOT SEEN /HPF (NOT SEEN); RBC,URINE PACKED /HPF (0-5)
[2025-03-20] MEDS: Sulfamethoxazole/Trimethoprim 800-160 MG Tab PO ONE (12:58)
[2025-03-20 13:15] VITALS: BP 111/64
== END 2025-03-20 13:11 | disposition home or self-care (01) ==
LOC: DL.ED 11:37
DX: N39.0 Urinary tract infection, site not specified (principal); I48.91 Unspecified atrial fibrillation; I25.10 Atherosclerotic heart disease of native coronary artery without angina pectoris; I13.0 Hypertensive heart and chronic kidney disease with heart failure and stage 1 through stage 4 chronic kidney disease, or unspecified chronic kidney disease; I50.9 Heart failure, unspecified; N18.9 Chronic kidney disease, unspecified; E78.00 Pure hypercholesterolemia, unspecified; J44.9 Chronic obstructive pulmonary disease, unspecified; E11.22 Type 2 diabetes mellitus with diabetic chronic kidney disease; Z95.5 Presence of coronary angioplasty implant and graft; Z88.5 Allergy status to narcotic agent; Z79.01 Long term (current) use of anticoagulants; Z79.51 Long term (current) use of inhaled steroids; Z79.82 Long term (current) use of aspirin; Z79.899 Other long term (current) drug therapy
CPT/HCPCS: 81001; 87086; 87088; 87186; 99283; A9270

== ENCOUNTER 2025-03-20 16:58 | Inpatient (IN) | payer MEDICARE, BC ==
[2025-03-20] MEDS: Sodium Chloride 0.9% 500 ML IV SCH (17:25)
[2025-03-20 17:30] LABS: HEMATOCRIT 36.4 % (40.0-54.0); HEMOGLOBIN 12.3 g/dL (14.0-18.0); MEAN CORPUSCULAR HEMOGLOBIN 35.4 pg (27.0-34.0); MEAN CORPUSCULAR HGB CONC 33.8 g/dL (33.0-35.0); MEAN CORPUSCULAR VOLUME 104.9 fL (80-100); PLATELET COUNT,PLT 116 10^3/uL (150-450); RED BLOOD CELL COUNT 3.47 10^6/uL (4.6-6.2); WHITE BLOOD CELL COUNT,WBC 20.7 10^3/uL (5.0-10.0)
[2025-03-20 17:47] LABS: A/G RATIO 1.2; ALBUMIN 3.9 g/dL (3.4-5.0); ANION GAP 14.1 mEq/L (7-13); BILIRUBIN TOTAL 1.4 mg/dL (0.2-1.0); BUN/CREATININE RATIO 41.2 (No establ ref range); C-REACTIVE PROTEIN 1.51 ng/dL (<=0.50); CALCIUM 9.5 mg/dL (8.5-10.1); CREATININE 2.57 mg/dL (0.70-1.30); EST CRCL DRUG DOSING (CG) 22.15 mL/min; POTASSIUM,K 4.1 mmol/L (3.5-5.1); PROTEIN TOTAL,TP 7.1 g/dL (6.4-8.2)
[2025-03-20 17:52] LABS: LACTIC ACID 1.4 mmol/L (0.4-2.0)
[2025-03-20 17:59] LABS: BAND PERCENT MAN 10 %; LYMPHOCYTES % ATYPICAL MANUAL 1 %; LYMPHOCYTES PERCENT MAN 3 % (20-50); MONOCYTES PERCENT MAN 10 % (2-8); SEG NEUTROPHILS PERCENT MAN 76 % (42-75)
[2025-03-20] MEDS: cefTRIAXone 1 GM Vial IVPUSH ONE (18:05)
[2025-03-20] MEDS: Cefepime 1 GM Vial IVPUSH ONE (21:19)
[2025-03-20] MEDS ORDERED: Ondansetron 4 MG/2 ML SDV IVPUSH PRN (21:37)
[2025-03-20] MEDS ORDERED: Sennosides/Docusate Sodium 50-8.6 MG Tab PO PRN (21:37)
[2025-03-20] MEDS ORDERED: Docusate Sodium 100 MG Cap PO PRN (21:37)
[2025-03-20] MEDS ORDERED: Albuterol/Ipratropium 3.0-0.5 MG/3 ML Neb Soln NEB PRN (21:37)
[2025-03-20] MEDS ORDERED: Melatonin 3 MG Tab PO PRN (21:37)
[2025-03-20] MEDS ORDERED: Sodium Chloride 0.9% 10 ML Syringe FLUSH PRN (21:37)
[2025-03-20] MEDS ORDERED: Bisacodyl 5 MG Tab PO PRN (21:37)
[2025-03-20] MEDS ORDERED: Glucagon,Human Recombinant 1 MG Vial IM PRN (22:09)
[2025-03-20] MEDS ORDERED: 50% Dextrose in Water 50 ML Syringe IVPUSH PRN (22:09)
[2025-03-20] MEDS: Insulin Lispro 100 Units/ML 3 ML Vial SUBCUT SCH (23:12)
[2025-03-20] MEDS: Insulin Glarg,Human.Rec.Analog 100 Unit/ML 10 ML Vial SUBCUT SCH (23:15)
[2025-03-20] MEDS: Acetaminophen 325 MG Tab PO PRN (23:21)
[2025-03-21] MEDS: Ketorolac 30 MG/ML SDV IVPUSH ONE (00:28)
[2025-03-21 06:38] LABS: BASOPHILS PERCENT AUTO 0.2 % (0.0-1.0); HEMATOCRIT 34.3 % (40.0-54.0); HEMOGLOBIN 11.2 g/dL (14.0-18.0); LYMPHOCYTES PERCENT AUTO 5.6 % (20.5-50.1); MEAN CORPUSCULAR HEMOGLOBIN 35.2 pg (27.0-34.0); MEAN CORPUSCULAR HGB CONC 32.7 g/dL (33.0-35.0); MEAN CORPUSCULAR VOLUME 107.9 fL (80-100); MONOCYTES PERCENT AUTO 8.9 % (2-8); NEUTROPHILS PERCENT AUTO 85.3 % (42.2-75.2); PLATELET COUNT,PLT 100 10^3/uL (150-450); RED BLOOD CELL COUNT 3.18 10^6/uL (4.6-6.2); WHITE BLOOD CELL COUNT,WBC 26.2 10^3/uL (5.0-10.0)
[2025-03-21 07:01] LABS: INR 1.1 (0.9-1.2); PROTHROMBIN TIME 11.8 SEC (9.0-12.0); PTT,PARTIAL THROMBOPLSTIN TIME 30.3 SEC (22.0-34.0)
[2025-03-21 07:23] LABS: PERCENT FE SATURATION 5.7 % (20.0-50.0)
[2025-03-21] MEDS: Sodium Chloride 0.9% 1,000 ML IV SCH (07:33)
[2025-03-21 07:46] LABS: ALANINE AMINOTRANSFERASE,ALT 21 U/L (16-63); ALKALINE PHOSPHATASE 65 U/L (46-116); ANION GAP 12.2 mEq/L (7-13); ASPARTATE AMNIOTRANSFERASE,AST 13 U/L (15-37); BLOOD UREA NITROGEN,BUN 99 mg/dL (7-18); BUN/CREATININE RATIO 34.5 (No establ ref range); C-REACTIVE PROTEIN 8.92 ng/dL (<=0.50); CALCIUM 8.9 mg/dL (8.5-10.1); CARBON DIOXIDE,CO2 30 mmol/L (21-32); CHLORIDE,CL 100 mmol/L (98-107); CREATININE 2.87 mg/dL (0.70-1.30); EST CRCL DRUG DOSING (CG) 19.83 mL/min; GLUCOSE RANDOM 201 mg/dL (70-99); MAGNESIUM 2.6 mg/dL (1.8-2.4); POTASSIUM,K 4.2 mmol/L (3.5-5.1); PROTEIN TOTAL,TP 5.9 g/dL (6.4-8.2); SODIUM,NA 138 mmol/L (136-145)
[2025-03-21 07:54] LABS: A/G RATIO 1.03; ESTIMATED GFR 22 mL/min (>=60); FOLIC ACID > 20.0 ng/mL (8.6-58.9)
[2025-03-21] MEDS ORDERED: Insulin Lispro 100 Units/ML 3 ML Vial SUBCUT SCH (08:00)
[2025-03-21] MEDS: Enoxaparin 30 MG/0.3 ML Syringe SUBCUT SCH (08:39)
[2025-03-21] MEDS: Sodium Chloride 0.9% 10 ML Syringe FLUSH SCH (09:00)
[2025-03-21] MEDS: Ibuprofen 400 MG Tab PO PRN (13:17)
[2025-03-21] MEDS: VANCOmycin 1.5 GM/300 ML 1.5 GM in Premix Bag 1 BAG IV ONE (13:18)
[2025-03-21] MEDS: Pantoprazole 40 MG Vial IVPUSH SCH (13:18)
[2025-03-21] MEDS: Hydrocortisone Sodium Succinate 100 MG/2 ML SDV IVPUSH SCH (13:18)
[2025-03-21] MEDS: Aspirin 325 MG Tab.EC PO SCH (17:53)
[2025-03-21] MEDS: atorvaSTATin 20 MG Tab PO SCH (20:50)
[2025-03-21] MEDS: Tamsulosin 0.4 MG Cap.ER PO SCH (20:51)
[2025-03-21] MEDS ORDERED: Insulin Glarg,Human.Rec.Analog 100 Unit/ML 10 ML Vial SUBCUT SCH (21:00)
[2025-03-21] MEDS: Cefepime 1 GM Vial IVPUSH SCH (21:08)
[2025-03-21] MEDS: Polyethylene Glycol 3350 Powder 17 GM Packet PO PRN (21:20)
[2025-03-21] MEDS: Insulin Glarg,Human.Rec.Analog 100 Unit/ML 10 ML Vial SUBCUT ONE (21:22)
[2025-03-22 06:17] LABS: HEMATOCRIT 31.1 % (40.0-54.0); HEMOGLOBIN 10.3 g/dL (14.0-18.0); MEAN CORPUSCULAR HEMOGLOBIN 35.4 pg (27.0-34.0); MEAN CORPUSCULAR HGB CONC 33.1 g/dL (33.0-35.0); MEAN CORPUSCULAR VOLUME 106.9 fL (80-100); PLATELET COUNT,PLT 84 10^3/uL (150-450); RED BLOOD CELL COUNT 2.91 10^6/uL (4.6-6.2)
[2025-03-22 06:38] LABS: EOSINOPHILS PERCENT AUTO 0.1 % (1.0-3.0); LYMPHOCYTES PERCENT AUTO 4.3 % (20.5-50.1); MONOCYTES PERCENT AUTO 7.2 % (2-8); NEUTROPHILS PERCENT AUTO 88.3 % (42.2-75.2)
[2025-03-22 06:39] LABS: BASOPHILS PERCENT AUTO 0.1 % (0.0-1.0)
[2025-03-22 06:47] LABS: ALBUMIN 2.8 g/dL (3.4-5.0); ANION GAP 14.9 mEq/L (7-13); BILIRUBIN TOTAL 0.6 mg/dL (0.2-1.0); BUN/CREATININE RATIO 35.4 (No establ ref range); C-REACTIVE PROTEIN 14.27 ng/dL (<=0.50); CALCIUM 8.4 mg/dL (8.5-10.1); CREATININE 2.97 mg/dL (0.70-1.30); EST CRCL DRUG DOSING (CG) 19.16 mL/min; MAGNESIUM 2.8 mg/dL (1.8-2.4); POTASSIUM,K 3.9 mmol/L (3.5-5.1); PROTEIN TOTAL,TP 5.7 g/dL (6.4-8.2)
[2025-03-22 06:49] LABS: A/G RATIO 0.97
[2025-03-22 07:08] LABS: SEG NEUTROPHILS PERCENT MAN 95 % (42-75)
[2025-03-22 07:09] LABS: LYMPHOCYTES PERCENT MAN 1 % (20-50); MONOCYTES PERCENT MAN 4 % (2-8)
[2025-03-22 12:03] VITALS: BP 140/59; PULSE 78
[2025-03-22] MEDS: VANCOmycin 500 MG in Sodium Chloride 0.9% 100 ML IV SCH (13:08)
[2025-03-22] MEDS: Digoxin 125 MCG Tab PO SCH (15:32)
[2025-03-22] MEDS: Allopurinol 300 MG Tab PO SCH (15:50)
== END 2025-03-22 13:45 | DRG 872 ==
LOC: DL.ED 16:58 → DL.MS 21:07
PROVIDERS: ADMIT Student in an Organized Health Care Education/Training Program; ATTEND Student in an Organized Health Care Education/Training Program
PROC: 0T9B70Z Drainage of Bladder with Drainage Device, Via Natural or Artificial Opening (ICD-10-PCS; principal; 2025-03-20)
PROC: 3E03329 Introduction of Other Anti-infective into Peripheral Vein, Percutaneous Approach (ICD-10-PCS; 2025-03-20)
DX: A41.9 Sepsis, unspecified organism (principal); N13.6 Pyonephrosis; I50.32 Chronic diastolic (congestive) heart failure; N17.9 Acute kidney failure, unspecified; J96.12 Chronic respiratory failure with hypercapnia; I13.0 Hypertensive heart and chronic kidney disease with heart failure and stage 1 through stage 4 chronic kidney disease, or unspecified chronic kidney disease; N13.30 Unspecified hydronephrosis; N30.01 Acute cystitis with hematuria; N40.0 Benign prostatic hyperplasia without lower urinary tract symptoms; R65.20 Severe sepsis without septic shock; I48.91 Unspecified atrial fibrillation; I25.10 Atherosclerotic heart disease of native coronary artery without angina pectoris; H91.90 Unspecified hearing loss, unspecified ear; I50.9 Heart failure, unspecified; M10.9 Gout, unspecified; N18.32 Chronic kidney disease, stage 3b; E66.9 Obesity, unspecified; R33.9 Retention of urine, unspecified; D63.1 Anemia in chronic kidney disease; N40.1 Benign prostatic hyperplasia with lower urinary tract symptoms; R31.9 Hematuria, unspecified; D69.6 Thrombocytopenia, unspecified; E83.42 Hypomagnesemia; E80.6 Other disorders of bilirubin metabolism; Z99.81 Dependence on supplemental oxygen; Z95.0 Presence of cardiac pacemaker; Z95.5 Presence of coronary angioplasty implant and graft; E78.00 Pure hypercholesterolemia, unspecified; J44.9 Chronic obstructive pulmonary disease, unspecified; Z79.84 Long term (current) use of oral hypoglycemic drugs; K21.9 Gastro-esophageal reflux disease without esophagitis; E11.22 Type 2 diabetes mellitus with diabetic chronic kidney disease; Z86.0100 Personal history of colon polyps, unspecified; Z87.11 Personal history of peptic ulcer disease; Z68.32 Body mass index [BMI] 32.0-32.9, adult; Z90.89 Acquired absence of other organs; Z98.890 Other specified postprocedural states; Z88.5 Allergy status to narcotic agent; Z79.51 Long term (current) use of inhaled steroids; Z79.82 Long term (current) use of aspirin; Z79.899 Other long term (current) drug therapy
CPT/HCPCS: 36415; 51702; 74176; 80053; 83605; 85025; 86140; 87040 ×2; 93005; 96361; 96374; 99285; J0696; J7040; 51701; 71045; 80202; 82607; 82728; 82746; 82947; 83540; 83550; 83735; 84484; 85610; 85730; 93010; 99223; 99233; 99238; A9270-GY; J0692; J1650; J1720; J1815-GY; J1885; J2470; J3370; J3372; J7030

== ENCOUNTER 2025-04-04 13:58 | Observation (INO) | payer MEDICARE, BC ==
[2025-04-04 14:55] LABS: APPEARANCE,URINE CLOUDY (CLEAR); GLUCOSE,URINE 500 (NEGATIVE); OCCULT BLOOD,URINE LARGE (NEGATIVE)
[2025-04-04 15:03] LABS: EPITHELIAL CELLS,URINE RARE /HPF (NOT SEEN)
[2025-04-04 15:15] LABS: PLATELET COUNT,PLT 152 10^3/uL (150-450); RED BLOOD CELL COUNT 3.41 10^6/uL (4.6-6.2); WHITE BLOOD CELL COUNT,WBC 16.2 10^3/uL (5.0-10.0)
[2025-04-04 15:19] LABS: BASOPHILS PERCENT AUTO 0.6 % (0.0-1.0); EOSINOPHILS PERCENT AUTO 0.8 % (1.0-3.0); LYMPHOCYTES PERCENT AUTO 13.3 % (20.5-50.1); MONOCYTES PERCENT AUTO 8.4 % (2-8); NEUTROPHILS PERCENT AUTO 76.9 % (42.2-75.2)
[2025-04-04 15:28] LABS: BLOOD UREA NITROGEN,BUN 120.0 mg/dL (7-18); CARBON DIOXIDE,CO2 34.0 mmol/L (21-32); CHLORIDE,CL 100.0 mmol/L (98-107); CREATININE 2.66 mg/dL (0.70-1.30); EST CRCL DRUG DOSING (CG) 21.4 mL/min; GLUCOSE RANDOM 258.0 mg/dL (70-99); POTASSIUM,K 4.9 mmol/L (3.5-5.1); SODIUM,NA 139.0 mmol/L (136-145)
[2025-04-04 15:31] LABS: ESTIMATED GFR 24.0 mL/min (>=60)
[2025-04-04] MEDS ORDERED: Sodium Chloride 0.9% 10 ML Syringe FLUSH PRN (15:48)
[2025-04-04 16:15] LABS: BAND PERCENT MAN 3 %; LYMPHOCYTES PERCENT MAN 15 % (20-50); MONOCYTES PERCENT MAN 5 % (2-8); NRBC MANUAL 2 /100WBC; SEG NEUTROPHILS PERCENT MAN 77 % (42-75)
[2025-04-04] MEDS ORDERED: 50% Dextrose in Water 50 ML Syringe IVPUSH PRN ×2 (18:14→18:24)
[2025-04-04] MEDS ORDERED: Nitroglycerin 0.4 MG Tab.SL SL PRN (18:14)
[2025-04-04 18:55] LABS: INR 1.0 (0.9-1.2)
[2025-04-04] MEDS: Insulin Glarg,Human.Rec.Analog 100 Unit/ML 10 ML Vial SUBCUT SCH (20:28)
[2025-04-04 21:01] LABS: APPEARANCE,URINE SLIGHTLY CLOUDY (CLEAR); GLUCOSE,URINE 500 (NEGATIVE); OCCULT BLOOD,URINE LARGE (NEGATIVE)
[2025-04-04 21:12] LABS: EPITHELIAL CELLS,URINE FEW /HPF (NOT SEEN)
[2025-04-05 06:22] LABS: PLATELET COUNT,PLT 124 10^3/uL (150-450); RED BLOOD CELL COUNT 3.00 10^6/uL (4.6-6.2); WHITE BLOOD CELL COUNT,WBC 10.7 10^3/uL (5.0-10.0)
[2025-04-05 06:32] LABS: EOSINOPHILS PERCENT AUTO 0.8 % (1.0-3.0); LYMPHOCYTES PERCENT AUTO 17.8 % (20.5-50.1); MONOCYTES PERCENT AUTO 9.9 % (2-8); NEUTROPHILS PERCENT AUTO 71.2 % (42.2-75.2)
[2025-04-05 06:33] LABS: BASOPHILS PERCENT AUTO 0.3 % (0.0-1.0); BLOOD UREA NITROGEN,BUN 115.0 mg/dL (7-18); CARBON DIOXIDE,CO2 34.0 mmol/L (21-32); CHLORIDE,CL 101.0 mmol/L (98-107); CREATININE 2.49 mg/dL (0.70-1.30); EST CRCL DRUG DOSING (CG) 22.86 mL/min; GLUCOSE RANDOM 197.0 mg/dL (70-99); POTASSIUM,K 4.3 mmol/L (3.5-5.1); SODIUM,NA 138.0 mmol/L (136-145)
[2025-04-05 06:35] LABS: ESTIMATED GFR 26.0 mL/min (>=60)
[2025-04-05 06:50] LABS: LYMPHOCYTES PERCENT MAN 22 % (20-50); SEG NEUTROPHILS PERCENT MAN 72 % (42-75)
[2025-04-05 06:51] LABS: MONOCYTES PERCENT MAN 6 % (2-8)
[2025-04-05] MEDS: Potassium Chloride 10 MEQ Tab.ER PO SCH (08:15)
[2025-04-05] MEDS: Fluticasone NASAL Spray 16 GM Bottle NAS SCH (08:18)
[2025-04-05 11:11] VITALS: BP 99/74; PULSE 71
== END 2025-04-05 12:45 | disposition home or self-care (01) ==
LOC: DL.ED 13:58 → DL.MS 16:34 → DL.ED 17:18
PROVIDERS: ADMIT Internal Medicine; ATTEND Internal Medicine
DX: N39.0 Urinary tract infection, site not specified (principal); J44.9 Chronic obstructive pulmonary disease, unspecified; K21.9 Gastro-esophageal reflux disease without esophagitis; E11.9 Type 2 diabetes mellitus without complications; E66.9 Obesity, unspecified; I11.0 Hypertensive heart disease with heart failure; I50.9 Heart failure, unspecified; I25.10 Atherosclerotic heart disease of native coronary artery without angina pectoris; Z95.0 Presence of cardiac pacemaker; Z88.5 Allergy status to narcotic agent
CPT/HCPCS: 36415; 74176; 80048; 80162; 81001; 82947; 83605; 83735; 84153; 85025; 85610; 87086; 87088; 87186; 96374; 99223; 99239; 99284; 99284-25; A9270-GY; G0378; J0696; J1815-GY

== ENCOUNTER 2025-06-26 07:44 | Emergency (ER) | payer MEDICARE, BC ==
[2025-06-26 07:59] VITALS: BP 118/59; PULSE 77
== END 2025-06-26 08:11 | disposition home or self-care (01) ==
LOC: DL.ED 07:44
DX: H60.392 Other infective otitis externa, left ear (principal); H65.192 Other acute nonsuppurative otitis media, left ear; I48.91 Unspecified atrial fibrillation; I25.10 Atherosclerotic heart disease of native coronary artery without angina pectoris; I11.0 Hypertensive heart disease with heart failure; I50.9 Heart failure, unspecified; J44.9 Chronic obstructive pulmonary disease, unspecified; E11.9 Type 2 diabetes mellitus without complications; Z88.5 Allergy status to narcotic agent; Z79.84 Long term (current) use of oral hypoglycemic drugs; Z79.899 Other long term (current) drug therapy; Z79.4 Long term (current) use of insulin
CPT/HCPCS: 99282; 99283